=== PATIENT | male | born 1945 | race Caucasian/White ===

== ENCOUNTER 2022-05-14 06:03 | Observation (INO) ==
[~2022-05-14 06:03] MED LIST: Buffered Lidocaine 1% SYRIN 1 ml INTRADERM ONE; Gentamicin ADULT 160 MG in NS 0.9% 100 ml BAG 100 ML IVPB ONE; NS 0.9% 1,000 ML IV SCH; NS 0.9% 1000 ml BAG 1,000 ML IV SCH; cefTRIAXone 2 gm/50 mL D5W 2 GM/50 ML BAG IV ONE
[2022-05-14] MEDS ORDERED: cefTRIAXone 2 gm/50 mL D5W 2 GM/50 ML BAG IV ONE (06:28)
[2022-05-14] MEDS ORDERED: Dexamethasone IV 4 MG/ML VIAL 1 ml VIAL ONE (06:40)
[2022-05-14] MEDS ORDERED: Ketamine HCL 50 mg/ml 10 ml VIAL (500 MG) ONE (06:40)
[2022-05-14] MEDS ORDERED: Propofol 10 MG/ML 20 ML BTL ONE (06:40)
[2022-05-14] MEDS ORDERED: fentaNYL 100 mcg/2 ml 50 MCG/ML VIAL ONE (06:40)
[2022-05-14] MEDS ORDERED: Lidocaine 2% PF 5 ML VIAL ONE (06:40)
[2022-05-14] MEDS ORDERED: Phenylephrine IV 10 MG/ML 1 ml VIAL ONE (06:40)
[2022-05-14] MEDS ORDERED: Ondansetron 4 mg VIAL 2 MG/ML 2 ml VIAL ONE (06:40)
[2022-05-14] MEDS ORDERED: Midazolam 2 mg/2 ml VIAL 1 mg/ml 2 ml VIAL (2 mg) ONE (07:02)
[2022-05-14] MEDS ORDERED: Ondansetron 4 mg VIAL 2 MG/ML 2 ml VIAL IV PRN (08:22)
[2022-05-14] MEDS ORDERED: Naloxone 0.4 mg VIAL 0.4 mg/ml 1 ml VIAL IV PRN (08:22)
[2022-05-14] MEDS ORDERED: fentaNYL 100 mcg/2 ml 50 MCG/ML VIAL IV PRN (08:22)
[2022-05-14] MEDS ORDERED: Acetaminophen IV 1 GM/100ML 100 ML IV PRN (08:22)
[2022-05-14] MEDS ORDERED: Furosemide 20 mg/2 ml IV VIAL ONE (08:29)
[2022-05-14] MEDS ORDERED: Acetaminophen IV 1 GM/100ML 100 ML IV ONE (10:19)
[2022-05-14] MEDS: LACTATED RINGERS 1000 ML BAG IV SCH ×2 (12:21→19:38)
[2022-05-15] MEDS: LACTATED RINGERS 1000 ML BAG IV SCH (02:17)
[2022-05-15 05:18] LABS: Calcium 8.5 mg/dL (8.6-10.3); Potassium 4.3 mmol/L (3.5-5.0); eGFR CKD-EPI 88.9 (>60)
[2022-05-15 07:47] VITALS: BP 130/66
[2022-05-25 10:55] LABS: Case Number CR-22-36857
== END 2022-05-15 10:16 | disposition home or self-care (01) ==
LOC: OR 06:03 → SSU 06:03
PROVIDERS: ADMIT Urology; ATTEND Urology

== ENCOUNTER → 2022-12-16 16:10 | Observation (INO) ==
[2022-12-14] MEDS: NS 0.9% 1,000 ML IV SCH (18:23)
[2022-12-14 18:43] LABS: Activated Partial Thrombo Time 31.9 seconds (26.0-38.0); INR 0.97 (0.88-1.18)
[2022-12-15] MEDS: NS 0.9% 1,000 ML IV SCH ×2 (02:16→13:08)
[2022-12-15 07:24] LABS: Hematocrit 22 % (42-52); Hemoglobin 7.3 g/dL (14.0-18.0)
[2022-12-15 14:40] LABS: Hematocrit 23 % (42-52); Hemoglobin 7.5 g/dL (14.0-18.0)
[2022-12-16] MEDS: NS 0.9% 1,000 ML IV SCH (03:47)
[2022-12-16 06:02] LABS: Hematocrit 20 % (42-52); Hemoglobin 6.6 g/dL (14.0-18.0)
[~2022-12-16 16:10] MED LIST changes: +Acetaminophen IV 1 GM/100ML 1,000 MG/100 ML BAG IV ONE; -Buffered Lidocaine 1% SYRIN 1 ml INTRADERM ONE; +Dexamethasone IV 4 MG/ML VIAL 1 ml VIAL ONE; -Gentamicin ADULT 160 MG in NS 0.9% 100 ml BAG 100 ML IVPB ONE; +Iohexol 350 (CONTRAST) 500 ML MDV IV ONE; +Lidocaine 2% PF 5 ML VIAL ONE; +Midazolam 2 mg/2 ml VIAL 1 mg/ml 2 ml VIAL (2 mg) ONE; -NS 0.9% 1,000 ML IV SCH; -NS 0.9% 1000 ml BAG 1,000 ML IV SCH; +Naloxone 0.4 mg VIAL 0.4 mg/ml 1 ml VIAL IV PRN; +Ondansetron 4 mg VIAL 2 MG/ML 2 ml VIAL IV PRN; +Ondansetron 4 mg VIAL 2 MG/ML 2 ml VIAL ONE; +Propofol 10 MG/ML 20 ML BTL ONE; +Succinylcholine 200 mg VIAL 20 mg/ml 10 ml VIAL (200 mg) ONE; +cefTRIAXone 1 gm/50 mL D5W 1 GM/50 ML BAG IV ONE; +fentaNYL 100 mcg/2 ml 50 MCG/ML VIAL IV PRN; +fentaNYL 100 mcg/2 ml 50 MCG/ML VIAL ONE; +oxyCODONE/Acetamin 5/325 mg TAB PO PRN
[2022-12-16 16:27] VITALS: BP 148/63
== END | disposition home or self-care (01) ==
LOC: SSU
PROVIDERS: ADMIT Urology; ATTEND Urology